=== PATIENT | female | born 1970 | race Two or more races ===

== ENCOUNTER 2018-11-29 05:20 | Day surgery (SDC) | payer OTHER ==
[~2018-11-29 05:20] MED LIST: ALBUTEROL0.63 MG/3 IH; CLONAZEPAM0.5 M1 PO; ENALAPRIL MALEAT5 MG PO; RESTORIL30 M1 PO; ZANTAC150 MG PO
[2018-11-29] MEDS ORDERED: ULTRACET PO (12:15)
[2018-11-29] MEDS ORDERED: NAPROXEN375 MG PO (12:15)
[2018-11-29] MEDS ORDERED: COLACE100 MG PO (12:15)
== END 2018-11-29 15:10 | disposition home or self-care (01) ==
LOC: CIR.AMB 05:20
DX: N85.01 Benign endometrial hyperplasia (principal); N83.292 Other ovarian cyst, left side; N73.6 Female pelvic peritoneal adhesions (postinfective)

== ENCOUNTER 2018-12-29 15:49 | Emergency (ER) | payer OTHER ==
[~2018-12-29] VITALS: Ht 167.6 cm; Wt 77.1 kg
[~2018-12-29 15:49] MED LIST changes: +COLACE100 MG PO; +NAPROXEN375 MG PO; +ULTRACET PO
== END 2018-12-29 21:37 | disposition home or self-care (01) ==
LOC: ER 15:49
DX: R30.0 Dysuria (principal); J45.998 Other asthma

== ENCOUNTER 2019-12-05 10:20 | Emergency (ER) | payer OTHER ==
[~2019-12-05] VITALS: Ht 167.6 cm; Wt 65.8 kg
[2019-12-05] MEDS ORDERED: AMITRIPTYLINE100 MG (10:35)
== END 2019-12-05 16:17 | disposition home or self-care (01) ==
LOC: ER 10:20
DX: R10.32 Left lower quadrant pain (principal); M54.5 Low back pain

== ENCOUNTER 2022-10-01 12:41 | Emergency (ER) | payer OTHER ==
[~2022-10-01] VITALS: Ht 167.6 cm; Wt 72.6 kg
[~2022-10-01 12:41] MED LIST changes: +AMITRIPTYLINE100 MG
[2022-10-01] MEDS ORDERED: JANUMET 50-5001 EACH PO (12:58)
== END 2022-10-01 15:07 | disposition home or self-care (01) ==
LOC: ER 12:41
DX: T39.315A Adverse effect of propionic acid derivatives, initial encounter (principal); Y92.89 Other specified places as the place of occurrence of the external cause; Z87.09 Personal history of other diseases of the respiratory system